=== PATIENT | female | born 1995 | race Caucasian/White ===

== ENCOUNTER 2018-02-07 | Emergency (ER) | payer MEDICAID ==
[~2018-02-07] VITALS: Ht 157.5 cm; Wt 75.5 kg
[2018-02-07 01:55] VITALS: BP 118/68
== END 2018-02-07 02:07 | disposition home or self-care (01) ==
LOC: EMS 00:03
DX: B86 Scabies (principal); F22 Delusional disorders

== ENCOUNTER 2018-07-28 10:47 | Emergency (ER) | payer MEDICAID, OTHER ==
[~2018-07-28] VITALS: Ht 157.5 cm; Wt 78.6 kg
[2018-07-28] MEDS ORDERED: ETON68IM3 SD (11:16)
[2018-07-28 12:15] VITALS: BP 112/74
== END 2018-07-28 12:20 | disposition home or self-care (01) ==
LOC: EMS 10:49
DX: H10.13 Acute atopic conjunctivitis, bilateral (principal); Z20.7 Contact with and (suspected) exposure to pediculosis, acariasis and other infestations; F17.210 Nicotine dependence, cigarettes, uncomplicated; Z79.899 Other long term (current) drug therapy

== ENCOUNTER 2018-08-17 19:03 | Emergency (ER) | payer OTHER ==
[~2018-08-17] VITALS: Ht 157.5 cm; Wt 79.1 kg
[~2018-08-17 19:03] MED LIST: ETON68IM3 SD
[2018-08-17 19:15] VITALS: BP 112/77
== END 2018-08-17 22:00 | disposition left against medical advice (07) ==
LOC: EMS 19:04
DX: H57.12 Ocular pain, left eye (principal); H53.8 Other visual disturbances; F17.210 Nicotine dependence, cigarettes, uncomplicated; Z53.21 Procedure and treatment not carried out due to patient leaving prior to being seen by health care provider

== ENCOUNTER 2018-08-18 12:24 | Emergency (ER) | payer OTHER ==
[~2018-08-18] VITALS: Ht 157.5 cm; Wt 77.3 kg
[2018-08-18] MEDS ORDERED: IBUPROFEN 600 MG TABLET PO ONE (14:45)
[2018-08-18] MEDS ORDERED: TOBRAMYCIN/DEXAMETHASONE 5 ML OPHTHALMIC SUSPENSION OU ONE (14:45)
[2018-08-18 14:57] VITALS: BP 122/63
== END 2018-08-18 15:25 | disposition home or self-care (01) ==
LOC: EMS 12:24
DX: H10.89 Other conjunctivitis (principal)

== ENCOUNTER 2018-12-22 19:47 | Emergency (ER) | payer OTHER ==
[~2018-12-22] VITALS: Ht 157.5 cm; Wt 86.4 kg
[2018-12-22] MEDS ORDERED: ACETAMINOPHEN 500 MG TABLET PO ONE (21:30)
[2018-12-22 23:34] VITALS: BP 117/67
== END 2018-12-22 23:48 | disposition home or self-care (01) ==
LOC: EMS 19:47
DX: S90.851A Superficial foreign body, right foot, initial encounter (principal); R07.89 Other chest pain; F17.210 Nicotine dependence, cigarettes, uncomplicated; V43.52XA Car driver injured in collision with other type car in traffic accident, initial encounter; Y93.89 Activity, other specified; Y92.89 Other specified places as the place of occurrence of the external cause; Y99.8 Other external cause status
CPT/HCPCS: 10120; 71101; 93005

== ENCOUNTER 2019-02-01 19:57 | Emergency (ER) | payer OTHER ==
[~2019-02-01] VITALS: Ht 157.5 cm; Wt 93.2 kg
[2019-02-01] MEDS ORDERED: LORA-703 PO (20:17)
[2019-02-01] MEDS ORDERED: FLUT9.9S16 NASAL (20:17)
[2019-02-01 21:38] VITALS: BP 138/79
== END 2019-02-01 21:44 | disposition home or self-care (01) ==
LOC: EMS 20:01
DX: M25.512 Pain in left shoulder (principal); H10.9 Unspecified conjunctivitis; K08.89 Other specified disorders of teeth and supporting structures; F17.210 Nicotine dependence, cigarettes, uncomplicated

== ENCOUNTER 2019-07-21 15:05 | Emergency (ER) | payer OTHER ==
[~2019-07-21] VITALS: Ht 157.5 cm; Wt 96.0 kg
[~2019-07-21 15:05] MED LIST changes: -ETON68IM3 SD; +FLUT9.9S16 NASAL; +LORA-703 PO
[2019-07-21] MEDS ORDERED: LIDOCAINE 5% TRANSDERMAL PATCH TD ONE (16:00)
[2019-07-21] MEDS ORDERED: METHOCARBAMOL 500 MG TABLET PO ONE (16:00)
[2019-07-21] MEDS ORDERED: ACETAMINOPHEN 325 MG TABLET PO ONE (16:00)
[2019-07-21 16:46] VITALS: BP 113/63
== END 2019-07-21 17:24 | disposition home or self-care (01) ==
LOC: EMS 15:06
DX: S70.12XA Contusion of left thigh, initial encounter (principal); M54.5 Low back pain; F17.210 Nicotine dependence, cigarettes, uncomplicated; W34.09XA Accidental discharge from other specified firearms, initial encounter; Y93.89 Activity, other specified; Y92.89 Other specified places as the place of occurrence of the external cause; Y99.8 Other external cause status

== ENCOUNTER 2020-01-03 15:03 | Emergency (ER) | payer OTHER ==
[~2020-01-03] VITALS: Ht 167.6 cm; Wt 91.8 kg
[2020-01-03 15:25] VITALS: BP 123/87
== END 2020-01-03 15:45 | disposition home or self-care (01) ==
LOC: EMS 15:08
DX: K08.89 Other specified disorders of teeth and supporting structures (principal); F17.210 Nicotine dependence, cigarettes, uncomplicated
CPT/HCPCS: 99283; Z7502

== ENCOUNTER 2020-05-30 00:11 | Emergency (ER) | payer OTHER ==
[~2020-05-30] VITALS: Ht 160 cm; Wt 110.0 kg
[2020-05-30] MEDS ORDERED: FLUORESCEIN SODIUM 1 MG STRIP OD ONE (01:30)
[2020-05-30] MEDS ORDERED: ERYTHROMYCIN 0.5% 3.5 GM TUBE OPHTHALMIC OINTMENT OD ONE (02:00)
[2020-05-30 02:26] VITALS: BP 117/73
== END 2020-05-30 02:32 | disposition home or self-care (01) ==
LOC: EMS 00:12
DX: H57.11 Ocular pain, right eye (principal); H11.31 Conjunctival hemorrhage, right eye; F17.210 Nicotine dependence, cigarettes, uncomplicated
CPT/HCPCS: 99283